=== PATIENT | female | born 1990 | race Caucasian/White ===

== ENCOUNTER 2016-06-30 21:06 | Emergency (ER) | payer OTHER ==
[~2016-06-30] VITALS: Ht 162.6 cm; Wt 65.8 kg
[2016-06-30 21:04] VITALS: BP 122/80
[~2016-06-30 21:06] MED LIST: BACTRIM-DS1 EA ORAL; CEPHALEXIN500 MG ORAL; DOXYCYCLINE MO100 MG ORAL; IBUPROFEN600 MG ORAL; NKM; OMEPRAZOLE20 M2 ORAL; XANAX0.25 MG ORAL; ZOFRAN4 M1 ORAL
--- NOTE | 2016-06-30 22:22 | Emergency Room Report ---
History of Present Illness General Chief Complaint: Substance Abuse Source: Patient, EMS Present Illness HPI This is a 25-year-old female with a history of IV heroin drug abuse. She is currently in rehabilitation. She said she relapsed and used heroin tonight. her boyfriend came home and found her unresponsive with bluish lips. he called 911. She received Narcan and responded. She is back to baseline now. She is not suicidal homicidal. She was to go home. Allergies: Coded Allergies: No Known Allergies (Unverified , 05/07/14) Patient History Past Medical History: see triage record, old chart reviewed Past Surgical History: none Pertinent Family History: none Social History: Reports: drug use Now: No Immunizations: other Reviewed Nursing Documentation: PMH: Agreed, PSxH: Agreed Nursing Documentation-PMH Past Medical History: No Stated History Hx Hypertension: No Hx Pacemaker: No Hx Asthma: No Hx COPD: No Hx Diabetes: No Hx Cancer: No Hx Gastrointestinal Problems: No Hx Dialysis: No Hx Neurological Problems: No Hx Cerebrovascular Accident: No Hx Seizures: No Review of Systems Eye: Denies: blurred vision, eye pain ENT: Denies: ear pain, nose congestion, throat swelling Respiratory: Denies: cough, shortness of breath Cardiovascular: Denies: chest pain, palpitations Gastrointestinal: Denies: abdominal pain, diarrhea, nausea, vomiting Musculoskeletal: Denies: back pain, joint pain Skin: Denies: rash Neurological: Denies: headache, numbness Endocrine: Denies: increased thirst, increased urine Hematologic/Lymphatic: Denies: easy bruising All Other Systems: negative except mentioned in HPI Physical Exam Vital Signs Date Time Temp Pulse Resp B/P Pulse Ox O2 Delivery O2 Flow Rate FiO2 06/30/16 21:00 97.2 93 16 122/80 98 Room Air vitals normal Sp02 EP Interpretation: reviewed, normal General Appearance: well appearing, no apparent distress, alert Head: normocephalic, atraumatic Eyes: bilateral eye EOMI, bilateral eye PERRL ENT: hearing grossly normal, normal pharynx Neck: full range of motion, supple, no meningismus Respiratory: chest non-tender, lungs clear, normal breath sounds Cardiovascular #1: regular rate, rhythm, no murmur Gastrointestinal: normal bowel sounds, non tender, no mass, no organomegaly, no bruit, non-distended Musculoskeletal: back normal, gait/station normal, normal range of motion Psychiatric: mood/affect normal Skin: warm/dry Medical Decision Making Diagnostic Impression: Primary Impression: Heroin abuse Additional Impression: Accidental heroin overdose Qualified Codes: T40.1X1A - Poisoning by heroin, accidental (unintentional), initial encounter ER Course Patient with heroin overdose. Has been almost an hour and now relapse of mental status. Denies any methadone overdose. No suicidal thought homicidal thought. She wants to leave. Her boyfriend is agreeable taking her home. We' ll discharge home. Last Vital Signs Date Time Temp Pulse Resp B/P Pulse Ox O2 Delivery O2 Flow Rate FiO2 06/30/16 21:04 91 16 Room Air 06/30/16 21:04 97.2 122/80 98 Status: improved Disposition: HOME, SELF-CARE Condition: Stable Referrals: [facility],REFERRING (PCP) TONIO NGUYEN M.D. Jun 30, 2016 22:22
[2016-06-30 22:30] VITALS: BP 127/84
[2016-06-30 22:31] VITALS: BP 127/84
== END 2016-06-30 22:33 | disposition home or self-care (01) ==
LOC: EDBD 21:06 → EMR 21:53
DX: F11.10 Opioid abuse, uncomplicated (principal); T40.1X1A Poisoning by heroin, accidental (unintentional), initial encounter; R40.20 Unspecified coma; Y92.009 Unspecified place in unspecified non-institutional (private) residence as the place of occurrence of the external cause
CPT/HCPCS: 99284